=== PATIENT | female | born 1975 | race Caucasian/White ===

== ENCOUNTER 2020-05-20 12:39 | Emergency (ER) | payer SELFPAY ==
[~2020-05-20] VITALS: Ht 162.5 cm; Wt 92.5 kg
--- NOTE | 2020-05-20 12:54 | ED General ---
General Chief Complaint: Glucose Problems Stated Complaint: HYPERGLYCEMIA; VOMITING History of Present Illness Date Seen by Provider: May 20, 2020 Time Seen by Provider: 13:12 Initial Comments 44-year-old female tells me she has been an insulin-dependent diabetic for 20 years was on metformin and insulin says she moved from [place] to this area about a month ago and has had no insulin or metformin since moving here recently became nauseated though she denies to me vomiting has had some chills no other sx's she presented to the clinic and was found to have a blood sugar of 505 she says they checked her urine and found it to be normal had her go to the ER to address her glucose she says she does not feel sick in general is not short of breath Allergies and Home Medications Allergies Coded Allergies: No Known Drug Allergies (Unverified , 05/20/20) Home Medications Ferrous Sulfate 325 Mg Tablet, 325 MG PO BID Prescribed by: DOYLE HERRERA on 05/20/20 151 Sulfamethoxazole/Trimethoprim 1 Each Tablet, 1 EACH PO BID Prescribed by: DOYLE HERRERA on 05/20/20 1518 Patient Home Medication List Home Medication List Reviewed: Yes Review of Systems Review of Systems Constitutional: No fever EENTM: no symptoms reported Respiratory: no symptoms reported Cardiovascular: no symptoms reported Gastrointestinal: No abdominal pain; nausea; No vomiting Genitourinary: no symptoms reported; No dysuria LMP: May 13, 2020 Musculoskeletal: no symptoms reported Skin: no symptoms reported Psychiatric/Neurological: No Symptoms Reported Hematologic/Lymphatic: No Symptoms Reported Past Swkwyea-Pznqqk-Eaiejj Hx Patient Social History Recent Foreign Travel: No Contact w/Someone Who Travel: No Physical Exam Vital Signs Vital Signs - First Documented 05/20/20 12:45 Temp 37.0 Pulse 105 Resp 18 B/P (MAP) 156/80 (105) Pulse Ox 98 O2 Delivery Room Air Capillary Refill : Height, Weight, BMI Height: '" Weight: lbs. oz. kg; BMI Method: General Appearance: No Apparent Distress Eyes: Bilateral Eye PERRL, Bilateral Eye EOMI HEENT: Normal ENT Inspection, Pharynx Normal, Moist Mucous Membranes Neck: Supple Respiratory: Lungs Clear, Normal Breath Sounds, Other (not tachy[pneic or breathing deep) Cardiovascular: Regular Rate, Rhythm Gastrointestinal: Normal Bowel Sounds, Non Tender, Soft Extremity: Normal Capillary Refill, Normal Inspection Progress/Results/Core Measures Suspected Sepsis SIRS Temperature: Pulse: Respiratory Rate: Laboratory Tests 05/20/20 12:50: White Blood Count 10.1 Blood Pressure / Mean: Laboratory Tests 05/20/20 12:50: Creatinine 0.89, Platelet Count 310, Total Bilirubin 0.6 Results/Orders Lab Results Laboratory Tests Test 05/20/20 12:46 05/20/20 12:50 05/20/20 13:50 05/20/20 14:35 Range/Units Glucometer 505 *H 319 H 70-110 MG/DL White Blood Count 10.1 4.3-11.0 10^3/uL Red Blood Count 4.17 L 4.35-5.85 10^6/uL Hemoglobin 9.5 L 11.5-16.0 G/DL Hematocrit 30 L 35-52 % Mean Corpuscular Volume 71 L 80-99 FL Mean Corpuscular Hemoglobin 23 L 25-34 PG Mean Corpuscular Hemoglobin Concent 32 32-36 G/DL Red Cell Distribution Width 15.3 H 10.0-14.5 % Platelet Count 310 130-400 10^3/uL Mean Platelet Volume 11.0 H 7.4-10.4 FL Neutrophils (%) (Auto) 87 H 42-75 % Lymphocytes (%) (Auto) 7 L 12-44 % Monocytes (%) (Auto) 5 0-12 % Eosinophils (%) (Auto) 0 0-10 % Basophils (%) (Auto) 1 0-10 % Neutrophils # (Auto) 8.8 H 1.8-7.8 X 10^3 Lymphocytes # (Auto) 0.7 L 1.0-4.0 X 10^3 Monocytes # (Auto) 0.5 0.0-1.0 X 10^3 Eosinophils # (Auto) 0.0 0.0-0.3 10^3/uL Basophils # (Auto) 0.1 0.0-0.1 10^3/uL Sodium Level 130 L 135-145 MMOL/L Potassium Level 4.1 3.6-5.0 MMOL/L Chloride Level 94 L 98-107 MMOL/L Carbon Dioxide Level 23 21-32 MMOL/L Anion Gap 13 5-14 MMOL/L Blood Urea Nitrogen 17 7-18 MG/DL Creatinine 0.89 0.60-1.30 MG/DL Estimat Glomerular Filtration Rate > 60 BUN/Creatinine Ratio 19 Glucose Level 510 *H 70-105 MG/DL Calcium Level 8.9 8.5-10.1 MG/DL Corrected Calcium 8.9 8.5-10.1 MG/DL Total Bilirubin 0.6 0.1-1.0 MG/DL Aspartate Amino Transf (AST/SGOT) 13 5-34 U/L Alanine Aminotransferase (ALT/SGPT) 12 0-55 U/L Alkaline Phosphatase 109 40-136 U/L Total Protein 7.4 6.4-8.2 GM/DL Albumin 4.0 3.2-4.5 GM/DL Lipase 28 8-78 U/L Urine Color YELLOW Urine Clarity CLOUDY H Urine pH 6.0 5-9 Urine Specific [place] 1.010 L 1.016-1.022 Urine Protein TRACE H NEGATIVE Urine Glucose (UA) 3+ H NEGATIVE Urine Ketones NEGATIVE NEGATIVE Urine Nitrite POSITIVE H NEGATIVE Urine Bilirubin NEGATIVE NEGATIVE Urine Urobilinogen 0.2 < = 1.0 MG/DL Urine Leukocyte Esterase 1+ H NEGATIVE Urine RBC (Auto) TRACE H NEGATIVE Urine RBC 2-5 H /HPF Urine WBC 25-50 H /HPF Urine Squamous Epithelial Cells 5-10 /HPF Urine Crystals NONE /LPF Urine Bacteria LARGE H /HPF Urine Casts NONE /LPF Urine Mucus NEGATIVE /LPF Urine Culture Indicated YES Test 05/20/20 15:00 Range/Units Glucometer 149 H 70-110 MG/DL My Orders Orders - DOYLE HERRERA MD Iv Heplock-Insert (Order) (05/20/20 13:05) Ns Iv 1000 Ml (Sodium Chloride 0.9%) (05/20/20 13:15) Nursing Communication (Order) (05/20/20 13:05) Insulin (Regular) Human (Novolin R (Per (05/20/20 13:15) Insulin (Regular) Human (Novolin R (Per (05/20/20 13:10) Ns Iv 1000 Ml (Sodium Chloride 0.9%) (05/20/20 14:00) Insulin (Regular) Human (Novolin R (Per (05/20/20 14:00) Acetaminophen Tablet/Caplet (Tylenol T (05/20/20 14:30) Cbc With Automated Diff (05/20/20 14:22) Urinalysis (05/20/20 14:22) Comprehensive Metabolic Panel (05/20/20 14:29) Chest Pa/Lat (2 View) (05/20/20 14:29) Ondansetron Injection (Zofran Injectio (05/20/20 14:30) Lipase (05/20/20 14:36) Manual Differential (05/20/20 12:50) Urine Culture (05/20/20 14:35) Ceftriaxone For Iv Use (Rocephin For I (05/20/20 15:15) Medications Given in ED Current Medications Medications Dose Ordered Sig/Lila Route Start Time Stop Time Status Last Admin Dose Admin Acetaminophen 650 mg ONCE ONCE PO 05/20/20 14:30 05/20/20 14:31 DC 05/20/20 14:56 650 MG Ceftriaxone Sodium 1000 mg/ Sterile Water 10 ml @ 200 mls/hr ONCE ONCE IV 05/20/20 15:15 05/20/20 15:17 DC 05/20/20 15:26 200 MLS/HR Insulin Human Regular 10 unit ONCE ONCE IV 05/20/20 13:15 05/20/20 13:16 DC 05/20/20 13:19 10 UNIT Insulin Human Regular 10 unit ONCE ONCE IV 05/20/20 14:00 05/20/20 14:01 DC 05/20/20 13:54 10 UNIT Ondansetron HCl 4 mg ONCE ONCE IVP 05/20/20 14:30 05/20/20 14:31 DC 05/20/20 14:37 4 MG Sodium Chloride 1,000 ml @ 500 mls/hr Q2H ONCE IV 05/20/20 13:15 05/20/20 15:14 DC 05/20/20 13:19 500 MLS/HR Vital Signs/I&O 05/20/20 05/20/20 12:45 14:56 Temp 37.0 39.0 Pulse 105 Resp 18 B/P (MAP) 156/80 (105) Pulse Ox 98 O2 Delivery Room Air Capillary Refill : Progress Note : Progress Note after 1 liter NS and 10 units insulin IV, glucose 319 CO 2 23 Na 130 K+ 4.1 now suddenly out of nowhere pt has 102 temp CBC UA CXR and CMP added to orders pt's only sx is nausea re exam is unchanged and benign after 2nd liter and 2nd 10 units insulin, glucose 149 CXR - normal Hb 9.5 MCV 71 UA + bact 25-50 WBC's CMP - neg Departure Impression Primary Impression: Hyperglycemia Additional Impressions: UTI (urinary tract infection) Qualified Codes: N30.00 - Acute cystitis without hematuria Anemia Qualified Codes: D50.9 - Iron deficiency anemia, unspecified Disposition: HOME, SELF-CARE Condition: Improved Departure-Patient Inst. Referrals: NO,LOCAL PHYSICIAN (PCP/Family) Primary Care Physician please arrange an appointment in the [facility] clinic to establish a primary care provider Patient Instructions: Diabetes Type 1, Adult (DC), Urinary Tract Infection, Adult (DC), Anemia Caused by Low Iron Add. Discharge Instructions: Prescriptions have written for Lantus insulin to use at bedtime, syringes Regular insulin to be used with meals according to the sliding scale Metformin and fingerstick strips to check the blood sugar sliding scale check blood sugar at mealtime give insulin for blood sugar 200-250 5 units regular insulin 250-300 8 units 300-350 10 350-400 12 >400 consult physician Scripts Ferrous Sulfate (Iron) 325 Mg Tablet 325 MG PO BID, #60 TAB Prov: DOYLE HERRERA MD 05/20/20 Sulfamethoxazole/Trimethoprim (Bactrim 400-80 mg Tablet) 1 Each Tablet 1 EACH PO BID for 7 Days, #14 TAB Prov: DOYLE HERRERA MD 05/20/20 DOYLE HERRERA MD May 20, 2020 12:54
[2020-05-20] MEDS ORDERED: inSUlin (REGULAR) HUMAN 1 UNIT/0.01 ML (CHARGE PER UNIT) ONE (13:10)
[2020-05-20] MEDS ORDERED: inSUlin (REGULAR) HUMAN 1 UNIT/0.01 ML (CHARGE PER UNIT) IV ONE ×2 (13:15→14:00)
[2020-05-20] MEDS ORDERED: NS IV 1000 ML 1,000 ML IV ONE (13:15)
[2020-05-20] MEDS ORDERED: NS IV 1000 ML 1,000 ML IV SCH (14:00)
[2020-05-20] MEDS ORDERED: ONDANSETRON 4 MG/2 ML (SDV) Z0FRAN IVP ONE (14:30)
[2020-05-20] MEDS ORDERED: ACETAMINOPHEN 325 MG TABLET PO ONE (14:30)
[2020-05-20 14:58] LABS: BASOPHILS % (AUTO) 1 % (0-10); EOSINOPHILS % (AUTO) 0 % (0-10); HEMATOCRIT 30 % (35-52); HEMOGLOBIN 9.5 G/DL (11.5-16.0); LYMPHOCYTES % (AUTO) 7 % (12-44); MEAN CORPUSCULAR HEMOGLOBIN 23 PG (25-34); MEAN CORPUSCULAR HGB CONC 32 G/DL (32-36); MEAN CORPUSCULAR VOLUME 71 FL (80-99); MONOCYTES % (AUTO) 5 % (0-12); PLATELET COUNT 310 10^3/uL (130-400); WHITE BLOOD COUNT 10.1 10^3/uL (4.3-11.0)
[2020-05-20 14:59] LABS: BASOPHILS # (AUTO) 0.1 10^3/uL (0.0-0.1); LYMPHOCYTES # (AUTO) 0.7 X 10^3 (1.0-4.0); MONOCYTES # (AUTO) 0.5 X 10^3 (0.0-1.0); NEUTROPHILS # (AUTO) 8.8 X 10^3 (1.8-7.8); NEUTROPHILS % (AUTO) 87 % (42-75)
[2020-05-20 15:05] LABS: CLARITY,URINE CLOUDY; COLOR,URINE YELLOW; GLUCOSE, URINE (UA) 3+ (NEGATIVE); PROTEIN,URINE TRACE (NEGATIVE)
[2020-05-20 15:06] LABS: BACTERIA,URINE LARGE /HPF; BILIRUBIN,URINE NEGATIVE (NEGATIVE); KETONES,URINE NEGATIVE (NEGATIVE); LEUKOCYTE ESTERASE ,URINE 1+ (NEGATIVE); NITRITE,URINE POSITIVE (NEGATIVE); WBC,URINE 25-50 /HPF
--- NOTE | 2020-05-20 15:11 | Diagnostic Imaging Report ---
INDICATION: Fever, hyperglycemia, and nausea. FINDINGS: The lungs are clear. No failure pattern, effusion, or pneumothorax. No free air beneath the diaphragms. IMPRESSION: Normal two-view chest. Dictated by: Dictated on workstation # [id number]
[2020-05-20] MEDS ORDERED: cefTRIAXone FOR IV USE 1,000 MG in WATER (STERILE) FOR INJECTION 10 ML IV ONE (15:15)
[2020-05-20] MEDS ORDERED: FERR-84 PO (15:18)
[2020-05-20] MEDS ORDERED: SULF1TAB34 PO (15:18)
[2020-05-20 15:29] LABS: BILIRUBIN,TOTAL 0.6 MG/DL (0.1-1.0); BUN/CREATININE RATIO 19; CALCIUM 8.9 MG/DL (8.5-10.1); CARBON DIOXIDE 23 MMOL/L (21-32); CHLORIDE 94 MMOL/L (98-107); CREATININE SERUM 0.89 MG/DL (0.60-1.30); GFR ESTIMATED > 60; POTASSIUM 4.1 MMOL/L (3.6-5.0); SODIUM 130 MMOL/L (135-145)
[2020-05-20 15:30] LABS: ALANINE AMINOTRANSFERASE 12 U/L (0-55); ALKALINE PHOSPHATASE 109 U/L (40-136); LIPASE 28 U/L (8-78); TOTAL PROTEIN 7.4 GM/DL (6.4-8.2)
[2020-05-20 15:31] LABS: GLUCOSE 510 MG/DL (70-105)
[2020-05-20 15:42] LABS: BAND NEUTROPHILS 19 %; BASOPHILS % (MANUAL) 0 %; EOSINOPHILS % (MANUAL) 0 %; LYMPHOCYTES % (MANUAL) 8 %; METAMYELOCYTES % 1 %; MONOCYTES % (MANUAL) 6 %; NEUTROPHILS % (MANUAL) 66 %; RBC MORPH NORMAL
[2020-05-20 15:45] VITALS: BP 145/69
== END 2020-05-20 15:40 | disposition home or self-care (01) ==
LOC: ER FS 12:42
DX: E11.65 Type 2 diabetes mellitus with hyperglycemia (principal); N39.0 Urinary tract infection, site not specified; D64.9 Anemia, unspecified; Z91.14 Patient's other noncompliance with medication regimen
CPT/HCPCS: 71046; 80053; 81000; 82962; 83690; 85007; 85027; 87077; 87088; 87186